=== PATIENT | female | born 1955 | race Caucasian/White ===

== ENCOUNTER → 2024-07-13 | Outpatient (REF) | payer MEDICARE ==
[2024-07-13 14:59] LABS: IRON (FE) 96 UG/DL (50-170); PERCENT SATURATION 24.6 % (13.2-45.0); TOTAL IRON BINDING CAPACITY 391 UG/DL (250-425)
[2024-07-13 15:03] LABS: FERRITIN 23.7 NG/ML (7.3-270.7); RHEUMATOID FACTOR QUANT < 3.5 IU/ML (<14)
[2024-07-13 15:04] LABS: VITAMIN B12 LEVEL 445 PG/ML (211-911)
== END ==
LOC: M LAB REF 14:36
PROVIDERS: ATTEND Internal Medicine
DX: M25.50 Pain in unspecified joint (principal); D64.9 Anemia, unspecified; R53.83 Other fatigue; L65.9 Nonscarring hair loss, unspecified

== ENCOUNTER → 2024-10-29 | Day surgery (SDC) | payer MEDICARE ==
[~2024-10-29] VITALS: Ht 157.5 cm; Wt 67.4 kg
[~2024-10-29] MED LIST: BUSP5TA PO; LEVO75TA4 PO; LIDOCAINE 2% 100 MG/5 ML SDV (FOR ANES.) As Ordered ONE; SERT25TA21 PO; SIMETHICONE 40MG/0.6ML DROPS 30ML As Ordered ONE
[2024-10-29 07:47] VITALS: TEMP 97.1
[2024-10-29 08:08] VITALS: BP 147/80; O2SAT 98
== END | disposition home or self-care (01) ==
LOC: M OPP 06:27
PROVIDERS: ATTEND Surgery
DX: K20.90 Esophagitis, unspecified without bleeding (principal); K44.9 Diaphragmatic hernia without obstruction or gangrene; R13.10 Dysphagia, unspecified; Z79.899 Other long term (current) drug therapy
CPT/HCPCS: 43239; 88305; J3010

== ENCOUNTER → 2024-11-01 | Outpatient (REF) | payer MEDICARE ==
[~2024-11-01] MED LIST changes: -LIDOCAINE 2% 100 MG/5 ML SDV (FOR ANES.) As Ordered ONE; -SIMETHICONE 40MG/0.6ML DROPS 30ML As Ordered ONE
== END ==
LOC: M LAB REF 17:34
PROVIDERS: ATTEND Internal Medicine
DX: M25.50 Pain in unspecified joint (principal)